=== PATIENT | female | born 2000 | race Caucasian/White ===

== ENCOUNTER 2018-10-01 15:28 | Observation (INO) | payer SELFPAY ==
[~2018-10-01] VITALS: Ht 162.6 cm; Wt 172.0 kg
[2018-10-01] MEDS ORDERED: FERR-71 MT (15:48)
[2018-10-01] MEDS ORDERED: PNV11TAB MT (15:48)
== END 2018-10-01 16:25 | disposition home or self-care (01) ==
LOC: L&D 15:28
PROVIDERS: ADMIT Specialist; ATTEND Specialist
DX: O26.892 Other specified pregnancy related conditions, second trimester (principal); R10.30 Lower abdominal pain, unspecified; Z3A.25 25 weeks gestation of pregnancy
CPT/HCPCS: G0378